=== PATIENT | male | born 1960 | race Asian ===

== ENCOUNTER 2018-05-12 16:25 | Emergency (ER) | payer MEDICARE ==
[~2018-05-12] VITALS: Ht 167.6 cm; Wt 81.8 kg
[2018-05-12 17:32] LABS: HEMATOCRIT 35.8 % (39.0-50.0); HEMOGLOBIN 11.9 g/dl (14.0-18.0); IMMATURE GRANULOCYTES 0.5 % (0.0-5.0); MEAN CELL VOLUME 86.3 fL CALC (80.0-100.0); MEAN CORPUSCULAR HGB 28.7 pG CALC (26.0-32.0); MEAN CORPUSCULAR HGB CONC 33.2 g/L CALC (32.0-36.0); NEUT# 9.93 thou/uL (1.82-7.42); RED BLOOD COUNT 4.15 mill/uL (4.70-6.10); RED CELL DISTRI WIDTH 12.9 % (11.5-15.5)
[2018-05-12 17:47] LABS: ALBUMIN 4.2 g/dL (3.2-5.0); BILIRUBIN, TOTAL 1.9 mg/dL (0.0-1.4); CREATININE 2.3 mg/dL (0.7-1.3); POTASSIUM 3.4 mmol/l (3.5-5.1); TOTAL PROTEIN 7.7 g/dL (6.3-8.2)
[2018-05-12] MEDS ORDERED: CARVEDILOL12.5 MG PO (20:29)
[2018-05-12] MEDS ORDERED: ATORVASTATIN CA80 MG PO (20:30)
[2018-05-12] MEDS ORDERED: TRIAMTERENE/HYD1 CAP PO (20:31)
[2018-05-12 22:01] LABS: URINE BILIRUBIN - DIPSTICK NEGATIVE (NEGATIVE); URINE BLOOD DIPSTICK NEGATIVE (NEGATIVE); URINE CLARITY CLEAR; URINE COLOR YELLOW; URINE GLUCOSE - DIPSTICK NEGATIVE (NEGATIVE); URINE KETONE NEGATIVE (NEGATIVE); URINE LEUK ESTERASE NEGATIVE (Negative); URINE NITRITE - DIPSTICK NEGATIVE (Negative); URINE PROTEIN - DIPSTICK NEGATIVE (NEG-TRACE); URINE SPECIFIC GRAVITY 1.015
[2018-05-12 22:10] VITALS: BP 117/59
[2018-05-12] MEDS ORDERED: COLCHICINE0.6 M2 PO (22:14)
[2018-05-12] MEDS ORDERED: PERCOCET 5/325M1 TAB PO (22:15)
== END 2018-05-12 22:25 | disposition home or self-care (01) ==
LOC: ED 16:25
PROVIDERS: Emergency Medicine
DX: M1A.9XX0 Chronic gout, unspecified, without tophus (tophi) (principal); R50.9 Fever, unspecified; M79.605 Pain in left leg

== ENCOUNTER 2018-05-21 16:23 | Inpatient (IN) | payer MEDICARE ==
[~2018-05-21] VITALS: Ht 167.6 cm; Wt 81.8 kg
[~2018-05-21 16:23] MED LIST: ATORVASTATIN CA80 MG PO; CARVEDILOL12.5 MG PO; COLCHICINE0.6 M2 PO; PERCOCET 5/325M1 TAB PO; TRIAMTERENE/HYD1 CAP PO
[2018-05-21 17:07] LABS: HEMOGLOBIN 12.9 g/dl (14.0-18.0); MEAN CELL VOLUME 85.7 fL CALC (80.0-100.0); MEAN CORPUSCULAR HGB 28.4 pG CALC (26.0-32.0); MEAN CORPUSCULAR HGB CONC 33.1 g/L CALC (32.0-36.0); NEUT# 4.59 thou/uL (1.82-7.42); RED BLOOD COUNT 4.55 mill/uL (4.70-6.10); RED CELL DISTRI WIDTH 12.6 % (11.5-15.5)
[2018-05-21 17:13] LABS: ALBUMIN 4.6 g/dL (3.2-5.0); BILIRUBIN, TOTAL 0.7 mg/dL (0.0-1.4); CREATININE 2.4 mg/dL (0.7-1.3); POTASSIUM 3.8 mmol/l (3.5-5.1); TOTAL PROTEIN 8.4 g/dL (6.3-8.2)
[2018-05-21 18:09] LABS: URINE BILIRUBIN - DIPSTICK NEGATIVE (NEGATIVE); URINE BLOOD DIPSTICK NEGATIVE (NEGATIVE); URINE COLOR YELLOW; URINE GLUCOSE - DIPSTICK NEGATIVE (NEGATIVE); URINE KETONE NEGATIVE (NEGATIVE); URINE LEUK ESTERASE NEGATIVE (NEGATIVE); URINE NITRITE - DIPSTICK NEGATIVE (Negative); URINE PROTEIN - DIPSTICK NEGATIVE (NEG-TRACE); URINE UROBILINOGEN - DIPSTICK 0.2 E.U./dL (0.2)
[2018-05-21 19:23] VITALS: BP 128/80
[2018-05-22 04:20] VITALS: BP 117/70
[2018-05-22 06:07] LABS: IMMATURE GRANULOCYTES 0.6 % (0.0-5.0); MEAN CORPUSCULAR HGB 28.1 pG CALC (26.0-32.0); MEAN CORPUSCULAR HGB CONC 32.4 g/L CALC (32.0-36.0); NEUT# 7.95 thou/uL (1.82-7.42); RED BLOOD COUNT 3.91 mill/uL (4.70-6.10); RED CELL DISTRI WIDTH 12.8 % (11.5-15.5)
[2018-05-22 06:22] LABS: BILIRUBIN, TOTAL 0.5 mg/dL (0.0-1.4); CREATININE 2.1 mg/dL (0.7-1.3); MAGNESIUM 1.5 mg/dL (1.6-2.3); POTASSIUM 3.5 mmol/l (3.5-5.1)
[2018-05-22 06:26] LABS: ALBUMIN 3.2 g/dL (3.2-5.0); TOTAL PROTEIN 6.2 g/dL (6.3-8.2)
[2018-05-22 08:00] VITALS: BP 125/74
[2018-05-22 17:04] VITALS: BP 162/78
[2018-05-22 20:25] VITALS: BP 179/93
[2018-05-22 22:42] VITALS: BP 160/97
[2018-05-22 23:45] VITALS: BP 152/84
[2018-05-23] VITALS (15 sets, daily range): BP systolic 119–168; BP diastolic 65–86
[2018-05-23 09:57] LABS: HEMATOCRIT 37.1 % (39.0-50.0); IMMATURE GRANULOCYTES 0.6 % (0.0-5.0); MEAN CELL VOLUME 88.1 fL CALC (80.0-100.0); MEAN CORPUSCULAR HGB 28.5 pG CALC (26.0-32.0); MEAN CORPUSCULAR HGB CONC 32.3 g/L CALC (32.0-36.0); NEUT# 12.13 thou/uL (1.82-7.42); RED BLOOD COUNT 4.21 mill/uL (4.70-6.10); RED CELL DISTRI WIDTH 12.9 % (11.5-15.5)
[2018-05-23 10:10] LABS: BILIRUBIN, TOTAL 2.3 mg/dL (0.0-1.4); CREATININE 1.5 mg/dL (0.7-1.3); DIRECT BILIRUBIN 0.5 mg/dl (0.0-0.3)
[2018-05-23 10:12] LABS: ALBUMIN 3.5 g/dL (3.2-5.0); BILIRUBIN, TOTAL 2.4 mg/dL (0.0-1.4); CREATININE 1.6 mg/dL (0.7-1.3); POTASSIUM 3.6 mmol/l (3.5-5.1); TOTAL PROTEIN 6.7 g/dL (6.3-8.2)
[2018-05-24] VITALS (12 sets, daily range): BP systolic 106–172; BP diastolic 60–95
[2018-05-24 05:43] LABS: HEMATOCRIT 33.3 % (39.0-50.0); HEMOGLOBIN 10.9 g/dl (14.0-18.0); IMMATURE GRANULOCYTES 0.8 % (0.0-5.0); MEAN CELL VOLUME 87.2 fL CALC (80.0-100.0); MEAN CORPUSCULAR HGB 28.5 pG CALC (26.0-32.0); MEAN CORPUSCULAR HGB CONC 32.7 g/L CALC (32.0-36.0); NEUT# 11.49 thou/uL (1.82-7.42); RED BLOOD COUNT 3.82 mill/uL (4.70-6.10); RED CELL DISTRI WIDTH 13.1 % (11.5-15.5)
[2018-05-24 05:52] LABS: ALKALINE PHOSPHATASE 199 u/l (38-126); AMYLASE < 30 u/l (30-110); BILIRUBIN, TOTAL 3.4 mg/dL (0.0-1.4); BUN 11 mg/dL (9-20); BUN/CREATININE RATIO 7 (12-20 (CALC)); CARBON DIOXIDE 27 mmol/l (22-30); CHLORIDE 96 mmol/l (95-108); CREATININE 1.6 mg/dL (0.7-1.3); GFR 44 ML/MIN (>=60 (CALC)); GFR FOR AFR.AMER. 54 ML/MIN (>=60 (CALC)); LIPASE 73 u/l (23-300); SGOT/AST 107 u/l (17-59); SODIUM 134 mmol/l (137-146); TOTAL PROTEIN 5.4 g/dL (6.3-8.2)
[2018-05-24 06:09] LABS: ALBUMIN 2.7 g/dL (3.2-5.0); ANION GAP 14 (6-22 (CALC)); POTASSIUM 2.8 mmol/l (3.5-5.1)
[2018-05-25] VITALS (8 sets, daily range): BP systolic 135–175; BP diastolic 69–99
[2018-05-25 04:49] LABS: HEMATOCRIT 31.4 % (39.0-50.0); HEMOGLOBIN 10.3 g/dl (14.0-18.0); IMMATURE GRANULOCYTES 0.6 % (0.0-5.0); MEAN CORPUSCULAR HGB 28.2 pG CALC (26.0-32.0); MEAN CORPUSCULAR HGB CONC 32.8 g/L CALC (32.0-36.0); NEUT# 6.22 thou/uL (1.82-7.42); RED BLOOD COUNT 3.65 mill/uL (4.70-6.10); RED CELL DISTRI WIDTH 13.1 % (11.5-15.5)
[2018-05-25 05:20] LABS: ALBUMIN 2.6 g/dL (3.2-5.0); ALKALINE PHOSPHATASE 215 u/l (38-126); AMYLASE < 30 u/l (30-110); ANION GAP 11 (6-22 (CALC)); BILIRUBIN, TOTAL 2.5 mg/dL (0.0-1.4); BUN 11 mg/dL (9-20); BUN/CREATININE RATIO 8 (12-20 (CALC)); CARBON DIOXIDE 28 mmol/l (22-30); CHLORIDE 103 mmol/l (95-108); CREATININE 1.4 mg/dL (0.7-1.3); GFR 52 ML/MIN (>=60 (CALC)); GFR FOR AFR.AMER. > 60 ML/MIN (>=60 (CALC)); LIPASE 248 u/l (23-300); SGOT/AST 72 u/l (17-59); SODIUM 139 mmol/l (137-146); TOTAL PROTEIN 5.3 g/dL (6.3-8.2)
[2018-05-25 05:26] LABS: MAGNESIUM 1.8 mg/dL (1.6-2.3)
[2018-05-26 04:05] VITALS: BP 148/82
[2018-05-26 05:04] LABS: HEMATOCRIT 30.8 % (39.0-50.0); HEMOGLOBIN 10.1 g/dl (14.0-18.0); IMMATURE GRANULOCYTES 0.8 % (0.0-5.0); MEAN CELL VOLUME 85.8 fL CALC (80.0-100.0); MEAN CORPUSCULAR HGB 28.1 pG CALC (26.0-32.0); MEAN CORPUSCULAR HGB CONC 32.8 g/L CALC (32.0-36.0); NEUT# 4.9 thou/uL (1.82-7.42); RED BLOOD COUNT 3.59 mill/uL (4.70-6.10); RED CELL DISTRI WIDTH 13.2 % (11.5-15.5)
[2018-05-26 05:32] LABS: ALBUMIN 2.8 g/dL (3.2-5.0); ALKALINE PHOSPHATASE 226 u/l (38-126); AMYLASE 50 u/l (30-110); ANION GAP 14 (6-22 (CALC)); BILIRUBIN, TOTAL 1.4 mg/dL (0.0-1.4); BUN 9 mg/dL (9-20); BUN/CREATININE RATIO 7 (12-20 (CALC)); CARBON DIOXIDE 29 mmol/l (22-30); CHLORIDE 98 mmol/l (95-108); CREATININE 1.3 mg/dL (0.7-1.3); GFR 57 ML/MIN (>=60 (CALC)); GFR FOR AFR.AMER. > 60 ML/MIN (>=60 (CALC)); LIPASE 508 u/l (23-300); MAGNESIUM 1.4 mg/dL (1.6-2.3); POTASSIUM 3.2 mmol/l (3.5-5.1); SGOT/AST 51 u/l (17-59); SODIUM 138 mmol/l (137-146); TOTAL PROTEIN 5.6 g/dL (6.3-8.2)
[2018-05-26 08:58] VITALS: BP 166/88
[2018-05-26 17:00] VITALS: BP 163/90
[2018-05-26 19:10] VITALS: BP 144/85
[2018-05-27] VITALS (8 sets, daily range): BP systolic 129–170; BP diastolic 66–100
[2018-05-27 06:01] LABS: ALBUMIN 3.2 g/dL (3.2-5.0); BUN 10 mg/dL (9-20); CARBON DIOXIDE 28 mmol/l (22-30); CHLORIDE 100 mmol/l (95-108); CREATININE 1.3 mg/dL (0.7-1.3); GFR 57 ML/MIN (>=60 (CALC)); GFR FOR AFR.AMER. > 60 ML/MIN (>=60 (CALC)); SODIUM 139 mmol/l (137-146)
[2018-05-27 06:09] LABS: POTASSIUM 3.9 mmol/l (3.5-5.1)
[2018-05-27 11:15] LABS: ALBUMIN 3.7 g/dL (3.2-5.0); ALKALINE PHOSPHATASE 235 u/l (38-126); ANION GAP 13 (6-22 (CALC)); BUN 9 mg/dL (9-20); BUN/CREATININE RATIO 8 (12-20 (CALC)); CARBON DIOXIDE 30 mmol/l (22-30); CHLORIDE 99 mmol/l (95-108); CREATININE 1.2 mg/dL (0.7-1.3); GFR > 60 ML/MIN (>=60 (CALC)); GFR FOR AFR.AMER. > 60 ML/MIN (>=60 (CALC)); POTASSIUM 3.3 mmol/l (3.5-5.1); SGOT/AST 64 u/l (17-59); SODIUM 139 mmol/l (137-146); TOTAL PROTEIN 7.5 g/dL (6.3-8.2)
[2018-05-28 04:02] VITALS: BP 140/82
[2018-05-28 04:39] LABS: ALBUMIN 3.1 g/dL (3.2-5.0); ALKALINE PHOSPHATASE 187 u/l (38-126); ANION GAP 13 (6-22 (CALC)); BILIRUBIN, TOTAL 0.7 mg/dL (0.0-1.4); BUN 11 mg/dL (9-20); BUN/CREATININE RATIO 10 (12-20 (CALC)); CARBON DIOXIDE 28 mmol/l (22-30); CHLORIDE 103 mmol/l (95-108); CREATININE 1.2 mg/dL (0.7-1.3); GFR > 60 ML/MIN (>=60 (CALC)); GFR FOR AFR.AMER. > 60 ML/MIN (>=60 (CALC)); POTASSIUM 3.2 mmol/l (3.5-5.1); SGOT/AST 38 u/l (17-59); SODIUM 140 mmol/l (137-146); TOTAL PROTEIN 6.1 g/dL (6.3-8.2)
[2018-05-28 04:42] LABS: MAGNESIUM 1.8 mg/dL (1.6-2.3)
[2018-05-28 05:00] LABS: HEMATOCRIT 31.4 % (39.0-50.0); HEMOGLOBIN 10.2 g/dl (14.0-18.0); IMMATURE GRANULOCYTES 3.7 % (0.0-5.0); MEAN CELL VOLUME 86.5 fL CALC (80.0-100.0); MEAN CORPUSCULAR HGB 28.1 pG CALC (26.0-32.0); MEAN CORPUSCULAR HGB CONC 32.5 g/L CALC (32.0-36.0); NEUT# 7.76 thou/uL (1.82-7.42); RED BLOOD COUNT 3.63 mill/uL (4.70-6.10); RED CELL DISTRI WIDTH 13.5 % (11.5-15.5)
[2018-05-28 08:03] VITALS: BP 164/85
[2018-05-28] MEDS ORDERED: TRAMADOL HCL50 MG PO (12:22)
[2018-05-28] MEDS ORDERED: CIPROFLOXACN500 MG PO (12:24)
[2018-05-28] MEDS ORDERED: LOSARTAN POT50 MG PO (12:24)
[2018-05-28] MEDS ORDERED: METRONIDAZOL500 MG PO (12:24)
[2018-05-28] MEDS ORDERED: COLCHICINE0.6 M2 PO (12:25)
[2018-05-28] MEDS ORDERED: MEDDOSEPAK PO (12:25)
[2018-05-28 13:00] VITALS: BP 150/78
== END 2018-05-28 15:54 | disposition home or self-care (01) | DRG 417 ==
LOC: ED 16:23 → ED-I 17:55 → ED 18:11 → MS2 18:12 → ICU 05-23 13:09 → MS2 05-25 15:42
PROVIDERS: Family Medicine; Internal Medicine Nephrology; Nurse Anesthetist, Certified Registered; Surgery; ADMIT Internal Medicine Nephrology; ATTEND Internal Medicine Nephrology
PROC: 0FT44ZZ Resection of Gallbladder, Percutaneous Endoscopic Approach (ICD-10-PCS; principal; 2018-05-23)
PROC: BF001ZZ Plain Radiography of Bile Ducts using Low Osmolar Contrast (ICD-10-PCS; 2018-05-23)
DX: K81.0 Acute cholecystitis (principal); K85.90 Acute pancreatitis without necrosis or infection, unspecified; N17.9 Acute kidney failure, unspecified; I12.9 Hypertensive chronic kidney disease with stage 1 through stage 4 chronic kidney disease, or unspecified chronic kidney disease; E11.22 Type 2 diabetes mellitus with diabetic chronic kidney disease; N18.3 Chronic kidney disease, stage 3 (moderate); E11.65 Type 2 diabetes mellitus with hyperglycemia; E78.5 Hyperlipidemia, unspecified; K76.0 Fatty (change of) liver, not elsewhere classified; D63.1 Anemia in chronic kidney disease; M10.071 Idiopathic gout, right ankle and foot; E87.6 Hypokalemia; E86.9 Volume depletion, unspecified
CPT/HCPCS: G0378; J0131; J0692; J1650; J2270; J2710; Q9967

== ENCOUNTER → 2018-06-06 | Outpatient (REF) | payer MEDICARE ==
[~2018-06-06] MED LIST changes: +CIPROFLOXACN500 MG PO; +LOSARTAN POT50 MG PO; +MEDDOSEPAK PO; +METRONIDAZOL500 MG PO; +TRAMADOL HCL50 MG PO
[2018-06-06 10:13] VITALS: BP 142/91
== END | disposition home or self-care (01) ==
LOC: BADA 10:00
PROVIDERS: ATTEND Surgery
DX: Z09 Encounter for follow-up examination after completed treatment for conditions other than malignant neoplasm (principal); I12.9 Hypertensive chronic kidney disease with stage 1 through stage 4 chronic kidney disease, or unspecified chronic kidney disease; N18.3 Chronic kidney disease, stage 3 (moderate)